=== PATIENT | male | born 1980 | race Caucasian/White ===

== ENCOUNTER 2016-08-10 17:11 | Emergency (ER) | payer OTHER ==
[~2016-08-10 17:11] MED LIST: PRILOSEC OTC20 MG PO
[2016-08-10 17:19] VITALS: BP 150/84
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
[2016-08-10] MEDS ORDERED: IBUPROFEN800 M1 PO (18:39)
[2016-08-10] MEDS ORDERED: CYCLOBENZAPRINE5 M2 PO (18:39)
== END 2016-08-10 18:43 ==
LOC: ERH 17:11
DX: M62.830 Muscle spasm of back (principal)

== ENCOUNTER 2017-11-03 07:36 | Emergency (ER) | payer OTHER ==
[~2017-11-03 07:36] MED LIST changes: +AMITRIPTYLINE H50 M2 PO; +BUTALB-ACETAMI1 EAC1 PO; +CYCLOBENZAPRINE5 M2 PO; +IBUPROFEN800 M1 PO; +LYRICA50 M1 PO; +METHADONE10 MG/5 M2 PO; +NADOLOL20 M1 PO; +PERIOGARD473 ML PO
[2017-11-03] MEDS ORDERED: PROPRANOLOL HCL20 M1 PO (11:18)
[2017-11-03] MEDS ORDERED: HYDROXYZINE HCL50 M2 PO (11:19)
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
[2017-11-03 12:24] VITALS: BP 130/65
[2017-11-03] MEDS ORDERED: PROAIR HFA8.5 GM INH (12:38)
[2017-11-03] MEDS ORDERED: PREDNISONE50 M1 PO (12:38)
[2017-11-03] MEDS ORDERED: IBUPROFEN800 M1 PO (12:38)
[2017-11-03] MEDS ORDERED: DOXYCYCLINE HY100 M4 PO (12:38)
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
== END 2017-11-03 12:53 ==
LOC: ERH 07:36
DX: S22.41XA Multiple fractures of ribs, right side, initial encounter for closed fracture (principal); J40 Bronchitis, not specified as acute or chronic; R10.32 Left lower quadrant pain; V89.2XXD Person injured in unspecified motor-vehicle accident, traffic, subsequent encounter
CPT/HCPCS: 1263; 74176; 93005; 93010; 96372; J1885